=== PATIENT | male | born 1970 | race Caucasian/White ===

== ENCOUNTER 2017-01-10 09:29 | Emergency (ER) | payer OTHER ==
[2017-01-10 09:36] VITALS: TEMP 97.7; BMI 31.6
--- NOTE | 2017-01-10 09:46 | PDOC ---
History of Present Illness - General Chief Complaint: Chest Pain Stated Complaint: SOB, PALPITATIONS, NUMBNESS TO FINGERS Time Seen by Provider: 01/10/17 09:46 Past History - Past Medical History Allergies/Adverse Reactions: Allergies Allergy/AdvReac Type Severity Reaction Status Date / Time No Known Allergies Allergy Verified 01/10/17 09:36 Home Medications: Ambulatory Orders Albuterol Sulfate Inhaler - [Ventolin HFA Inhaler -] 1 - 2 inh PO QID #1 inhaler 05/05/16 Ibuprofen 800 mg PO QID PRN #20 tablet 05/05/16 Other medical history: denies - Immunization History Td Vaccination: Yes Immunization Up to Date: Yes - Psycho/Social/Smoking Cessation Hx Anxiety: No Suicidal Ideation: No Smoking Status: No Smoking History: Never smoked Years of Tobacco Use: 0 Have you smoked in the past 12 months: No Number of Cigarettes Smoked Daily: 0 Cigars Per Day: 0 Information on smoking cessation initiated: No Hx Alcohol Use: No Drug/Substance Use Hx: No Substance Use Type: None *Physical Exam - Vital Signs Last Vital Signs Temp Pulse Resp BP Pulse Ox 97.7 F 75 18 151/98 100 01/10/17 09:35 01/10/17 09:35 01/10/17 09:35 01/10/17 09:35 01/10/17 09:35 *DC/Admit/Observation/Transfer - Attestations Physician Attestion: 01/10/17 09:46 I, Dr. Nayan Driver, attest that this document has been prepared under my direction and personally reviewed by me in its entirety. I further attest, that it accurately reflects all work, treatment, procedures and medical decision -making performed by me.
[2017-01-10] MEDS ORDERED: ASPIRIN 81 MG CHEWABLE TABLETS PO ONE (10:01)
[2017-01-10] MEDS ORDERED: KETOROLAC TROMETHAMINE 30 MG/1 ML VIAL IVPUSH ONE (10:02)
[2017-01-10] MEDS ORDERED: KETOROLAC TROMETHAMINE 30 MG/1 ML VIAL ONE (10:07)
[2017-01-10] MEDS ORDERED: ASPIRIN 81 MG CHEWABLE TABLETS ONE (10:07)
[2017-01-10 10:17] LABS: BASOPHIL 0.9 % (0-2.0); EOSINOPHIL 3.1 % (0-4.5); MCH 29.2 pg (25.7-33.7); MCHC 33.9 g/dl (32.0-35.9); MEAN CELL VOLUME 86.2 fl (80-96); MEAN PLT VOLUME 6.7 fl (7.5-11.1); NEUTROPHILS 45.4 % (42.8-82.8); PLATELET COUNT 212 K/MM3 (134-434); RDW 14.7 % (11.9-15.9); WHITE BLOOD COUNT 2.8 K/mm3 (4.0-10.0)
--- NOTE | 2017-01-10 10:35 | PDOC ---
History of Present Illness - General Chief Complaint: Chest Pain Stated Complaint: SOB, PALPITATIONS, NUMBNESS TO FINGERS Time Seen by Provider: 01/10/17 09:46 History Source: Patient, Sibling - History of Present Illness Initial Comments: 01/10/17 10:25 46-year-old male with no past medical history presents the ED with complaints of back pain for the past 2 years intermittently to his thoracic region that causes him shortness of breath including chest pain. 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 Patient states no recent travel, recent illness, fever, cough, headache, dizziness, palpitations, calf pain, recent surgery, history of cardiac disorders. Presenting Symptoms: Chest Pain Timing/Duration: reports: constant Severity/Quality: reports: moderate, dull Location: reports: substernal Chest Pain Radiation: reports: no radiation Activities at Onset: reports: none Prior Chest Pain/Cardiac Workup: reports: Echocardiography, Stress Test Nitro Today/Relief: Yes: no nitro taken today Aspirin Received prior to arrival (Core Measure): Yes: 81 mg x 2, provided by ED Beta Purvi Contraindications (Core Measure): Yes: Not Prescribed Beta Purvi indicated at this time? (Core Measure): No Associated Symptoms: Yes: Back Pain, Chest Pain/pressure, Shortness of Breath Past History - Past Medical History Allergies/Adverse Reactions: Allergies Allergy/AdvReac Type Severity Reaction Status Date / Time No Known Allergies Allergy Verified 01/10/17 09:36 Home Medications: Ambulatory Orders Albuterol Sulfate Inhaler - [Ventolin HFA Inhaler -] 1 - 2 inh PO QID #1 inhaler 05/05/16 Other medical history: denies - Immunization History Td Vaccination: Yes Immunization Up to Date: Yes - Psycho/Social/Smoking Cessation Hx Anxiety: No Suicidal Ideation: No Smoking Status: No Smoking History: Never smoked Years of Tobacco Use: 0 Have you smoked in the past 12 months: No Number of Cigarettes Smoked Daily: 0 Cigars Per Day: 0 Information on smoking cessation initiated: No Hx Alcohol Use: No Drug/Substance Use Hx: No Substance Use Type: None Patient Lives Alone: No Lives with/in: spouse/SO Review of Systems - Review of Systems Able to Perform ROS?: Yes Constitutional: No: Symptoms Reported HEENTM: No: Symptoms Reported Respiratory: Yes: Shortness of Breath. No: Cough Cardiac (ROS): Yes: Chest Pain ABD/GI: No: Symptoms Reported : No: Symptoms Reported Musculoskeletal: Yes: Back Pain. No: Muscle Pain, Neck Pain Integumentary: No: Symptoms Reported Neurological: No: Symptoms reported Psychiatric: No: Anxiety Endocrine: No: Symptoms Reported Hematologic/Lymphatic: No: Symptoms Reported *Physical Exam - Vital Signs Last Vital Signs Temp Pulse Resp BP Pulse Ox 97.7 F 72 16 130/71 100 01/10/17 09:35 01/10/17 10:30 01/10/17 10:30 01/10/17 10:30 01/10/17 10:30 - Physical Exam General Appearance: Yes: Nourished, Appropriately Dressed. No: Apparent Distress HEENT: positive: EOMI, SANIYA. negative: Pale Conjunctivae Neck: positive: Supple Respiratory/Chest: positive: Lungs Clear, Normal Breath Sounds. negative: Chest Tender, Respiratory Distress, Accessory Muscle Use Cardiovascular: positive: Regular Rhythm, Regular Rate. negative: Murmur Gastrointestinal/Abdominal: positive: Soft. negative: Tenderness Extremity: positive: Normal Capillary Refill. negative: Pedal Edema, Calf Tenderness Integumentary: positive: Normal Color, Warm, Moist Neurologic: positive: Motor Strength 5/5 (ambulatory) Heart Score/ECG Review - History History: Slightly suspicious - Electrocardiogram EKG: Normal - Age Age: </= 45 - Risk Factors Based on the list above the patient has:: No risk factors known - Troponin Troponin: </= normal limit - Score Heart Score - Total: 0 #2 General ECG Interpretation: Sinus Rhythm (rate 63) Compared to previous ECG there are: No significant change - ECG Intrepretation Rhythm: Regular Rhythm (rate 68. NSR,) ED Treatment Course - LABORATORY CBC & Chemistry Diagram: 01/10/17 09:50 01/10/17 09:50 - ADDITIONAL ORDERS Additional order review: Laboratory Results 01/10/17 01/10/17 01/10/17 15:00 09:50 09:50 INR 1.06 D-Dimer < 200 Sodium 140 Potassium 3.7 Chloride 104 Carbon Dioxide 23 Anion Gap 13 BUN 12 Creatinine 0.8 Creat Clearance w eGFR > 60 Random Glucose 106 Calcium 8.9 Magnesium 2.1 Total Bilirubin 0.6 AST 19 ALT 30 D Alkaline Phosphatase 90 Creatine Kinase 118 88 Troponin I < 0.02 < 0.02 Total Protein 6.9 Albumin 3.9 01/10/17 09:50 RBC 5.22 MCV 86.2 MCHC 33.9 RDW 14.7 MPV 6.7 L Neutrophils % 45.4 D Lymphocytes % 39.9 Monocytes % 10.7 H Eosinophils % 3.1 Basophils % 0.9 - RADIOLOGY Radiology Studies Ordered: Category Date Time Status CHEST CT WITH CONTRAST [CT] Stat CT Scan 01/10/17 11:24 Completed CHEST X-RAY PORTABLE* [RAD] Stat Radiology 01/10/17 10:01 Completed - Medications Given in the ED: ED Medications Discontinued Medications Generic Name Dose Route Start Last Admin Trade Name Freq PRN Reason Stop Dose Admin Aspirin 162 mg 01/10/17 10:01 01/10/17 10:20 Asa - PO 01/10/17 10:02 162 mg ONCE ONE Administration Ketorolac Tromethamine 30 mg 01/10/17 10:02 01/10/17 10:20 Toradol Injection - IVPUSH 01/10/17 10:03 30 mg ONCE ONE Administration Medical Decision Making - Medical Decision Making 01/10/17 10:05 Patient with complaints of shortness of breath back pain and chest pain. Patient states initially started as back pain but then this morning radiated to his chest causing shortness of breath. Patient denies history of anxiety , recent travel, recent illness and states symptoms have occurred in the past. I have reviewed patient's previous labs consults and imaging with no acute findings. Patient will have a cardiac workup including a PE workup. Patient is currently satting at 100% with a heart rate of 73. 01/10/17 11:23 Laboratory Tests 02/11/13 05/05/16 01/10/17 03:15 04:25 09:50 WBC 3.8 L 4.2 2.8 L D MPV 6.6 L 6.8 L D-Dimer Sodium Potassium Chloride Anion Gap BUN Creatinine Calcium Magnesium Total Bilirubin AST ALT Troponin I 01/10/17 01/10/17 09:50 09:50 WBC MPV D-Dimer < 200 Sodium 140 Potassium 3.7 Chloride 104 Anion Gap 13 BUN 12 Creatinine 0.8 Calcium 8.9 Magnesium 2.1 Total Bilirubin 0.6 AST 19 ALT 30 D Troponin I < 0.02 01/10/17 11:25 Chest x-ray shows a questionable small left pleural effusion versus artifact. Based on patient's white count and complaints I will perform a chest CT with contrast to rule out other etiologies such as masses, effusion/infiltrate 01/10/17 13:18 Second troponin or EKG ordered. Patient currently asymptomatic. 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 There is also 4.5 mm faint nodule in the right posterior costophrenic angle which is nonspecific. A follow-up CT of the chest in 6-12 months will be most helpful in further evaluation since there is no prior CT for comparison. 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 01/10/17 15:52 Laboratory Tests 01/10/17 15:00 Creatine Kinase 118 Troponin I < 0.02 discharge hometo follow up with hem/onc, Dr. Holliday. *DC/Admit/Observation/Transfer Diagnosis at time of Disposition: Shortness of breath Leukopenia Qualifiers: Leukopenia type: neutropenia Neutropenia type: unspecified Qualified Code(s): D70.9 - Neutropenia, unspecified - Discharge Dispostion Disposition: HOME Condition at time of disposition: Good - Referrals Referrals: Jorje Holliday MD [Staff Physician] - - Patient Instructions Printed Discharge Instructions: White Blood Cell Count, With Differential, DI for Shortness of Breath Additional Instructions: Please follow up with your doctor and take copy of labs and chest ct with you. Please follow up also with Dr. Holliday
[2017-01-10 10:38] LABS: INR 1.06 (0.82-1.09)
[2017-01-10 10:42] LABS: ALBUMIN 3.9 g/dl (3.4-5.0); ANION GAP 13 (8-16); BILIRUBIN,TOTAL 0.6 mg/dL (0.2-1.0); CALCIUM 8.9 mg/dL (8.5-10.1); CO2 23 mmol/L (21-32); COCKROFT - GAULT 137.65; CREATININE 0.8 mg/dL (0.7-1.3); GLUCOSE,RANDOM 106 mg/dL (74-106); MAGNESIUM 2.1 mg/dL (1.8-2.4); SGOT/AST 19 U/L (15-37); SGPT/ALT 30 U/L (12-78); TOT PROT 6.9 g/dl (6.4-8.2)
[2017-01-10 10:45] LABS: ALK PHOS 90 U/L (45-117); TROPONIN I < 0.02 ng/ml (0.00-0.05)
[2017-01-10 11:15] LABS: D-DIMER < 200 ng/ml (<200-235)
--- NOTE | 2017-01-10 14:06 | EKG ---
Test Reason : Blood Pressure : / mmHG Vent. Rate : 069 BPM Atrial Rate : 069 BPM P-R Int : 184 ms QRS Dur : 112 ms QT Int : 404 ms P-R-T Axes : 027 071 022 degrees QTc Int : 432 ms NORMAL SINUS RHYTHM NORMAL ECG WHEN COMPARED WITH ECG OF 05-MAY-2016 04:43, NO SIGNIFICANT CHANGE WAS FOUND Confirmed by KARLA BROWN MD ([id number]) on 01/10/2017 2:05:56 PM Referred By: Confirmed By:KARLA BROWN MD
[2017-01-10 15:35] LABS: TROPONIN I < 0.02 ng/ml (0.00-0.05)
[2017-01-10 16:38] VITALS: BP 124/76; PULSE 63
--- NOTE | 2017-01-11 12:33 | EKG ---
Test Reason : Blood Pressure : / mmHG Vent. Rate : 063 BPM Atrial Rate : 063 BPM P-R Int : 188 ms QRS Dur : 110 ms QT Int : 430 ms P-R-T Axes : 032 061 022 degrees QTc Int : 440 ms NORMAL SINUS RHYTHM NORMAL ECG WHEN COMPARED WITH ECG OF 10-JAN-2017 09:41, NO SIGNIFICANT CHANGE WAS FOUND Confirmed by MELANIE JARVIS MD ([id number]) on 01/11/2017 12:33:07 PM Referred By: Confirmed By:MELANIE JARVIS MD
== END 2017-01-10 16:39 | disposition home or self-care (01) ==
LOC: JER 09:29
PROC: 3E0333Z Introduction of Anti-inflammatory into Peripheral Vein, Percutaneous Approach (ICD-10-PCS; principal; 2017-01-10)
DX: R06.02 Shortness of breath (principal); D70.9 Neutropenia, unspecified; R00.2 Palpitations
CPT/HCPCS: 36415; 71010-TC; 71260-TC; 80053; 82550; 83735; 84484; 85025; 85379; 85610; 93005; 93010; 96374; 99285-25

== ENCOUNTER 2019-04-22 03:22 | Emergency (ER) | payer OTHER ==
[2019-04-22 03:39] VITALS: PULSE 75; TEMP 98; BMI 29.6
[2019-04-22] MEDS ORDERED: LIDOCAINE 5% TOPICAL PATCH TP ONE (03:42)
[2019-04-22] MEDS ORDERED: METHOCARBAMOL 500 MG TABLET PO ONE (03:42)
--- NOTE | 2019-04-22 03:43 | PDOC ---
Attending Attestation - Resident Resident Name: Bg Steven - ED Attending Attestation I have performed the following: I have examined & evaluated the patient, The case was reviewed & discussed with the resident, I agree w/resident's findings & plan - HPI HPI: 04/22/19 04:18 Pt comes with scapular and neck pain. 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 He is anxious and wants an MRI. - Physicial Exam PE: 04/22/19 04:19 Agree with resident exam - Medical Decision Making 04/22/19 04:19 Labs pending. Pt will be treated with analgesics. 04/22/19 04:47 CBC is normal 04/22/19 05:56 chem is normal and pt is stable for discharge home.
--- NOTE | 2019-04-22 03:45 | PDOC ---
History of Present Illness - General Chief Complaint: Chest Pain Stated Complaint: PAIN LEFT SIDE NECK AND SHOULDER Time Seen by Provider: 04/22/19 03:41 History Source: Patient Past History - Past Medical History Allergies/Adverse Reactions: Allergies Allergy/AdvReac Type Severity Reaction Status Date / Time No Known Allergies Allergy Verified 04/22/19 03:35 Home Medications: Ambulatory Orders Albuterol Sulfate Inhaler - [Ventolin HFA Inhaler -] 1 - 2 inh PO QID #1 inhaler 05/05/16 Pantoprazole Sodium [Protonix] 40 mg PO DAILY #30 tab 06/18/17 Methocarbamol [Robaxin -] 500 mg PO TID #21 tablet 04/22/19 COPD: No GI Disorders: Yes (gastritis) - Immunization History Td Vaccination: Yes Immunization Up to Date: Yes - Suicide/Smoking/Psychosocial Hx Smoking Status: No Smoking History: Never smoked Years of Tobacco Use: 0 Have you smoked in the past 12 months: No Number of Cigarettes Smoked Daily: 0 Cigars Per Day: 0 Hx Alcohol Use: No Drug/Substance Use Hx: No Substance Use Type: None *Physical Exam - Vital Signs Last Vital Signs Temp Pulse Resp BP Pulse Ox 98.0 F 75 18 155/105 H 100 04/22/19 03:35 04/22/19 03:35 04/22/19 03:35 04/22/19 03:35 04/22/19 03:35 ED Treatment Course - LABORATORY CBC & Chemistry Diagram: 04/22/19 04:00 04/22/19 04:20 *DC/Admit/Observation/Transfer Diagnosis at time of Disposition: Muscle spasm - Discharge Dispostion Disposition: HOME Condition at time of disposition: Stable Decision to Admit order: No - Prescriptions Prescriptions: Methocarbamol [Robaxin -] 500 mg PO TID #21 tablet - Referrals Referrals: Candido Kearney MD [Primary Care Provider] - - Patient Instructions Printed Discharge Instructions: DI for Muscle Spasm Additional Instructions: Usted fue evaluado en la [facility] por dolor muscular. Shabnam niveles de alejandro resultaron normales, y shabnam sintomas johnson mejorados. Por favor ve a garcia doctor de cabezera la semana que viene, o lo mas pronto posible. Estamos prescribiendo un medicamento para ayudar con el dolor muscular, robaxin. Robaxin puede causar somnolencia, por lo cual no deberias de manejar equipaje peligroso mientras estas tomando alejandro medicamento. Regresa a la [facility] urgencias si empiezas a tener fiebres altas, empiezas a tener erupciones de piel , o si pierdes sensacion en shabnam raghav o piernas. Print Language: MALDIVIAN - Post Discharge Activity
[2019-04-22] MEDS ORDERED: LIDOCAINE 5% TOPICAL PATCH ONE (03:59)
[2019-04-22] MEDS ORDERED: METHOCARBAMOL 500 MG TABLET ONE (03:59)
[2019-04-22 04:40] VITALS: BP 141/96
[2019-04-22 04:42] LABS: BASO % 0.9 % (0-2.0); EOS % 2.8 % (0-4.5); HEMATOCRIT 45.4 % (35.4-49); HEMOGLOBIN 15.2 GM/dL (11.7-16.9); LYMPH % 39.9 % (8-40); MCH 29.4 pg (25.7-33.7); MCHC 33.5 g/dl (32.0-35.9); MEAN CELL VOLUME 87.7 fl (80-96); MEAN PLT VOLUME 7.2 fl (7.5-11.1); MONO % 10.3 % (3.8-10.2); NEUT % 46.1 % (42.8-82.8); PLATELET COUNT 256 K/MM3 (134-434); RBC 5.17 M/mm3 (4.00-5.60); RDW 14.5 % (11.9-15.9); WHITE BLOOD COUNT 4.2 K/mm3 (4.0-10.0)
[2019-04-22 05:14] LABS: ALBUMIN 4.1 g/dl (3.4-5.0); BILIRUBIN,TOTAL 0.9 mg/dL (0.2-1); BLOOD UREA NITROGEN 13.3 mg/dL (7-18); CALCIUM 8.7 mg/dL (8.5-10.1); CREATININE 0.8 mg/dL (0.55-1.3); POTASSIUM 3.3 mmol/L (3.5-5.1); TOT PROT 7.3 g/dl (6.4-8.2)
[2019-04-22] MEDS ORDERED: POTASSIUM CHLORIDE TABS 20 MEQ TABLET.ER (FP) PO ONE ×2 (05:23→05:27)
--- NOTE | 2019-04-22 11:25 | EKG ---
Test Reason : Blood Pressure : / mmHG Vent. Rate : 072 BPM Atrial Rate : 072 BPM P-R Int : 184 ms QRS Dur : 110 ms QT Int : 418 ms P-R-T Axes : 053 074 036 degrees QTc Int : 457 ms NORMAL SINUS RHYTHM NORMAL ECG WHEN COMPARED WITH ECG OF 18-JUN-2017 09:21, NO SIGNIFICANT CHANGE WAS FOUND Confirmed by KARLA BROWN MD ([id number]) on 04/22/2019 11:25:04 AM Referred By: Confirmed By:KARLA BROWN MD
[2019-04-22] MEDS ORDERED: LIDOCAINE PATCH REMOVAL MC SCH (22:00)
== END 2019-04-22 05:36 | disposition home or self-care (01) ==
LOC: JER 03:22
DX: M54.2 Cervicalgia (principal); M25.512 Pain in left shoulder
CPT/HCPCS: 36415; 80053; 82550; 84484; 85025; 93005; 93010; 99282-25

== ENCOUNTER 2020-11-22 14:14 | Emergency (ER) | payer OTHER ==
[2020-11-22 14:23] VITALS: BP 130/81; PULSE 78; TEMP 98.1; BMI 31.0
[2020-11-23 10:06] LABS: SARS-CoV-2 NAA Detected (Not Detected)
== END 2020-11-22 16:40 | disposition home or self-care (01) ==
LOC: JER 14:14
DX: Z11.52 Encounter for screening for COVID-19 (principal)
CPT/HCPCS: 87880; 99284-25; C9803; U0003; U0005

== ENCOUNTER 2021-10-08 11:22 | Emergency (ER) | payer OTHER ==
[2021-10-08 11:31] VITALS: BP 142/94; PULSE 92; TEMP 97.9; BMI 29.3
[2021-10-08] MEDS ORDERED: METOCLOPRAMIDE HCL INJECTION 10 MG/2 ML VIAL IVPB ONE (12:04)
[2021-10-08] MEDS ORDERED: ACETAMINOPHEN 1000 MG/100 ML BAG IVPB ONE (12:04)
[2021-10-08] MEDS ORDERED: SODIUM CHLORIDE 1,000 ML IV STA (12:04)
[2021-10-08] MEDS ORDERED: METOCLOPRAMIDE HCL INJECTION 10 MG/2 ML VIAL ONE (12:15)
[2021-10-08] MEDS ORDERED: ACETAMINOPHEN INJECTION 100 ML IVPB ONE (12:16)
[2021-10-08 13:08] LABS: BASO % 0.8 % (0-2.0); EOS % 1.7 % (0-4.5); HEMATOCRIT 45.5 % (35.4-49); HEMOGLOBIN 15.5 GM/dL (11.7-16.9); LYMPH % 35.1 % (8-40); MCH 29.7 pg (25.7-33.7); MCHC 34.1 g/dl (32.0-35.9); MEAN CELL VOLUME 87.2 fl (80-96); MEAN PLT VOLUME 7.1 fl (7.5-11.1); MONO % 9.2 % (3.8-10.2); NEUT % 53.2 % (42.8-82.8); PLATELET COUNT 226 10^3/uL (134-434); RBC 5.22 M/mm3 (4.00-5.60); RDW 14.6 % (11.9-15.9); WHITE BLOOD COUNT 3.5 K/mm3 (4.0-10.0)
[2021-10-08 13:12] LABS: EPI CELLS 2 /uL (0-25.1); HYALINE CASTS 0 /uL (0-3.1); PH,URINE 7.5 (5.0-8.0); URINE APPEARANCE CLEAR; URINE BACTERIA 6 /uL (0-1359); URINE BILIRUBIN NEGATIVE (NEGATIVE); URINE COLOR YELLOW; URINE GLUCOSE (UA) NEGATIVE (NEGATIVE); URINE KETONE NEGATIVE (NEGATIVE); URINE LEUK ESTERASE NEGATIVE (NEGATIVE); URINE NITRITE NEGATIVE (NEGATIVE); URINE PROTEIN 1+ (NEGATIVE); URINE RBC 42 /uL (0-23.9); URINE WBC 3 /uL (0-25.8)
[2021-10-08 13:28] LABS: ALBUMIN 4.1 g/dl (3.4-5.0); BLOOD UREA NITROGEN 14.5 mg/dL (7-18); CALCIUM 9.2 mg/dL (8.5-10.1)
[2021-10-08 13:32] LABS: CREATININE 0.9 mg/dL (0.55-1.3)
[2021-10-08 13:33] LABS: BILIRUBIN,TOTAL 0.7 mg/dL (0.2-1); TOT PROT 7.2 g/dl (6.4-8.2)
[2021-10-09 12:07] LABS: SARS-CoV-2 NAA Not Detected (Not Detected)
== END 2021-10-08 17:27 | disposition home or self-care (01) ==
LOC: JER 11:22
PROC: 3E033NZ Introduction of Analgesics, Hypnotics, Sedatives into Peripheral Vein, Percutaneous Approach (ICD-10-PCS; principal; 2021-10-08)
PROC: 3E033GC Introduction of Other Therapeutic Substance into Peripheral Vein, Percutaneous Approach (ICD-10-PCS; 2021-10-08)
PROC: 3E033GC Introduction of Other Therapeutic Substance into Peripheral Vein, Percutaneous Approach (ICD-10-PCS; 2021-10-08)
PROC: 3E0337Z Introduction of Electrolytic and Water Balance Substance into Peripheral Vein, Percutaneous Approach (ICD-10-PCS; 2021-10-08)
DX: R51.9 Headache, unspecified (principal)
CPT/HCPCS: 36415; 70450-TC; 80053; 81003; 82550; 84484; 85025; 87086; 93005; 93010; 99285-25; C9803; U0003; U0005

== ENCOUNTER 2022-11-09 02:50 | Emergency (ER) | payer OTHER ==
[2022-11-09 03:00] VITALS: BP 160/95; PULSE 58; RESP 18; TEMP 97.8; BMI 32.5
[2022-11-09] MEDS ORDERED: PSEUDOEPHEDRINE HCL 30 MG TABLET PO ONE (03:13)
[2022-11-09] MEDS ORDERED: ACETAMINOPHEN 325 MG TABLET (FP) PO ONE (03:15)
[2022-11-09] MEDS ORDERED: ACETAMINOPHEN 325 MG TABLET (FP) ONE (03:17)
[2022-11-09] MEDS ORDERED: PSEUDOEPHEDRINE HCL 60 MG TABLET ONE (03:20)
[2022-11-09] MEDS ORDERED: diphenhydrAMINE HCL 25 MG CAPSULE (FP) PO ONE ×2 (04:07→04:13)
== END 2022-11-09 04:17 | disposition home or self-care (01) ==
LOC: JER 02:50
DX: R09.81 Nasal congestion (principal); Z20.822 Contact with and (suspected) exposure to COVID-19
CPT/HCPCS: 0241U-QW; 99283-25

== ENCOUNTER 2024-10-17 05:28 | Emergency (ER) | payer OTHER ==
[2024-10-17 05:35] VITALS: BP 156/86; PULSE 87; RESP 16; TEMP 99.1; BMI 30.2
[2024-10-17] MEDS ORDERED: ONDANSETRON *ODT* 4 MG TABLET ONE (06:04)
[2024-10-17] MEDS ORDERED: ACETAMINOPHEN 325 MG TABLET (FP) ONE (06:04)
[2024-10-17] MEDS: ACETAMINOPHEN 500 MG TABLET (FP) PO ONE (06:08)
[2024-10-17] MEDS: ONDANSETRON *ODT* 4 MG TABLET SL ONE (06:09)
[2024-10-17] MEDS ORDERED: IBUPROFEN 400 MG TABLET (FP) PO ONE (06:23)
[2024-10-17] MEDS: IBUPROFEN 400 MG TABLET (FP) PO ONE (06:24)
== END 2024-10-17 06:34 | disposition home or self-care (01) ==
LOC: JER 05:28
DX: J10.1 Influenza due to other identified influenza virus with other respiratory manifestations (principal); R05.1 Acute cough; R50.9 Fever, unspecified; M79.10 Myalgia, unspecified site; R11.10 Vomiting, unspecified
CPT/HCPCS: 0241U-QW; 99283-25; Q0162